=== PATIENT | female | born 1980 | race Caucasian/White ===

== ENCOUNTER → 2016-10-17 | Outpatient (CLI) | payer OTHER ==
--- NOTE | 2016-10-17 17:18 | REP ---
HISTORY: Chronic maxillary sinusitis. COMPARISON: 04/05/2011 Once again, there is a moderate to large right maxillary sinus mucous retention cyst, status quo. No lysis or sclerosis of the bony architecture surrounding the paranasal sinuses have developed. There is no change in the ostiomeatal complexes. They are patent. The hiatus semilunaris is unchanged and intact bilaterally. There is no change in the appearance of the turbinates. The minimal mucosal thickening seen in the maxillary sinuses on the prior exam is even less today. There is a left-sided Gloria cell which is unchanged. There is a partially paradoxical middle and inferior turbinate, status quo. There is no change in the appearance of the Tiffani jossue or cribriform plate and there is no change in the appearance of the nasal septum. IMPRESSION: The only change is that there is less mucosal thickening in the maxillary sinuses which was minimal on the 04/05/2011 exam. The soft tissue density in the right maxillary antrum representing a mucous retention cyst is unchanged. There are other chronic changes as described above. Signed by Bin Moreland DO 10/18/2016 10:11 A
== END ==
LOC: M RAD 13:45
PROVIDERS: ATTEND Otolaryngology
DX: J32.0 Chronic maxillary sinusitis (principal)

== ENCOUNTER → 2021-04-05 | Outpatient (REF) | payer BC ==
[2021-04-05 12:13] LABS: APPEARANCE, URINE CLOUDY (CLEAR); BACTERIA, URINE AUTO 2+ (NEGATIVE); BILIRUBIN, URINE AUTO NEGATIVE (NEGATIVE); BLOOD, URINE BLOOD NEGATIVE (NEGATIVE); COLOR, URINE RED (YELLOW); GLUCOSE, URINE (UA) AUTO NEGATIVE (NEGATIVE); KETONE, URINE AUTO NEGATIVE (NEGATIVE); LEUKOCYTE ESTERASE, URINE AUTO 2+ (NEGATIVE); NITRITE, URINE AUTO NEGATIVE (NEGATIVE); PROTEIN, URINE AUTO NEGATIVE (NEGATIVE); RBC, URINE AUTO 2 /HPF (0-3); SPECIFIC GRAVITY URINE AUTO 1.002 (1.002-1.035); SQUAMOUS EPITHELIAL CELL UR AU 4 /HPF (0-6); UROBILINOGEN, URINE AUTO 0.2 mg/dL (0.0-2.0); WBC, URINE AUTO 26 /HPF (0-3)
== END ==
LOC: M LAB REF 11:34
PROVIDERS: ATTEND Physician Assistant Medical
DX: N39.0 Urinary tract infection, site not specified (principal)

== ENCOUNTER → 2024-06-12 | Outpatient (CLI) | payer BC ==
[~2024-06-12] MED LIST: BARIUM SULFATE 700 MG TABLET (E-Z-DISK) As Ordered ONE; E-Z-PAQUE 96% w/w SUSP 176GM BTL As Ordered ONE; VARIBAR NECTAR 40% w/v 240ML SUSP BTL As Ordered ONE; VARIBAR PUDDING 40% w/v 230ML TUBE As Ordered ONE
== END ==
LOC: M RAD 11:25
PROVIDERS: ATTEND Internal Medicine Gastroenterology
DX: K22.70 Barrett's esophagus without dysplasia (principal); K21.9 Gastro-esophageal reflux disease without esophagitis; R13.10 Dysphagia, unspecified